=== PATIENT | male | born 1950 | race Caucasian/White ===

== ENCOUNTER → 2018-04-06 | Outpatient (CLI) | payer OTHER, BC | LOC: BMCIMAGING 11:11 | PROVIDERS: ATTEND Internal Medicine | DX: M51.16 Intervertebral disc disorders with radiculopathy, lumbar region (principal); Z98.1 Arthrodesis status ==

== ENCOUNTER → 2019-04-16 | Outpatient (CLI) | payer OTHER, BC | LOC: BMCIMAGING 14:53 ==